=== PATIENT | female | born 2005 | race Caucasian/White ===

== ENCOUNTER 2023-11-09 23:22 | Emergency (ER) | payer BC, SELFPAY ==
[2023-11-09 23:25] VITALS: BP 131/86; PULSE 83; RESP 15; TEMP 36.8; O2SAT 99
[2023-11-09] MEDS: ACETAMINOPHEN 500 MG TABLET 1000 MG PO (23:53)
[2023-11-10 00:09] LABS: Add Urine Microscopic? YES; Appearance Urine Turbid (Clear); Bacteria Urine None Seen /hpf; Bilirubin Urine Negative (Negative); Blood Urine Negative (Negative); Color Urine Yellow (Yellow); Glucose Urine UA Negative (Negative); Ketones Urine Trace mg/dL (Negative); Leukocyte Esterase Ur 1+ LEU/UL (Negative); Mucus Urine Present /lpf; Need Manual Microscopic Reviewed; Nitrate Urine Negative (Negative); Non Pathogenic Casts 0-2; Protein Urine Trace mg/dL (Negative); RBC Urine 51-100 /hpf (0-2); Specific Grav Ur 1.034 (1.001-1.035); Squamous Epithelial Cell Urine Occasional /hpf (Few); WBC Urine 21-50 /hpf (0-3)
--- NOTE | 2023-11-10 03:37 | ED.FEMALEGU ---
HPI - Female Genitourinary General Chief complaint: Urogenital-Female Stated complaint: vaginal pain Time Seen by Provider: 11/10/23 03:34 History of Present Illness HPI Narrative: Patient is a 18-year-old female who presents to the emergency department this evening concerned for these infection. Patient states that she was having some vaginal itching and her mother told her to take some Monistat [id number] vaginal cream. Patient states that shortly after she inserted the vaginal cream she started to have severe burning pain. This is the patient is a first-time using Monistat. Mother states that patient does get frequent urinary tract infection and they were concerned that maybe she also has a UTI. Denies any concern for STDs at this time. No additional symptoms or concerns at this time. Related Data Allergies Allergy/AdvReac Type Severity Reaction Status Date / Time nitrofurantoin Allergy Mild Nausea and Verified 11/09/23 23:24 [From Macrobid] Vomiting Review of Systems Review of Systems: All systems are reviewed and are negative unless stated otherwise in the HPI. PMFSH Family History Family History Father Asthma Hypertension Depression Mother Depression Thyroid disorder Social History Social History Social History: Student Smoking status: Never smoker Second hand tobacco smoke exposure: No Alcohol intake: never Substance use: never Substance use type: does not use Do You Feel Safe in your Home?: Yes Lack of Transportation: No Lack of Food: Never True Current Housing: I Have Housing Concerned About Future Housing: No Difficulty Paying Gas/Electric Bills: No Difficulty Paying for Meds: No Currently Unemployed: No Education: High School Diploma/GED Difficulty w/ Childcare or Family Care: No Living arrangements: with family Additional living arrangements comments: Pt lives with her mom. Occupation/Education: student Additional occupation/education comments: Pt is a student at [employer]. 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 Gender identity (if verbalized by the patient): Female Sexual Orientation (if Verbalized by the Patient): Lesbian, Mera, or Homosexual Exam Narrative: General: Alert, awake, afebrile, in no acute distress. HEENT: PERRL, no rhinorrhea, no post nasal drip, oropharynx clear. Cardiovascular: Regular rate and rhythm, no murmurs, rubs or gallops, no peripheral edema. Respiratory: Clear to auscultation bilaterally, no tachypnea, no wheezing, no rhonchi, no rubs, no respiratory distress. Abdomen: Soft, nontender, nondistended, no rebound, no guarding, no peritoneal signs. Musculoskeletal: No joint swelling or deformity, normal muscle tone. Skin: No rashes or petechia, no signs of infection. Neurological: Alert and oriented to person, place, and time. Follows all commands. No focal deficits, speech is clear and fluent. Course Vital Signs Vital signs: Vital Signs Temperature 98.2 F 11/09/23 23:25 Pulse Rate 83 11/09/23 23:25 Respiratory Rate 15 11/09/23 23:25 Blood Pressure 131/86 11/09/23 23:25 Pulse Oximetry 99 11/09/23 23:25 Oxygen Delivery Room Air 11/09/23 23:25 Temperature 98.2 F 11/09/23 23:25 Pulse Rate 83 11/09/23 23:25 Respiratory Rate 15 11/09/23 23:25 Blood Pressure 131/86 11/09/23 23:25 Pulse Oximetry 99 11/09/23 23:25 Oxygen Delivery Room Air 11/09/23 23:25 MDM - Female Genitourinary MDM Narrative Medical decision making narrative: The patient was evaluated by myself in the emergency department. History is obtained from patient who is an independent historian and physical exam was performed. External medical records were reviewed at this time. Urinalysis was obtained at this time revealing 21-50 white blood cells and 2100 RBCs and 1+ leuk esterases. At
[2023-11-10] MEDS: FLUCONAZOLE 150 MG TABLET PO (04:00)
== END 2023-11-10 04:01 | disposition home or self-care (01) ==
LOC: ANHED 11-10 03:50
PROVIDERS: Emergency Provider Emergency Medicine; PCP Family Medicine
DX: N39.0 Urinary tract infection, site not specified (principal); B37.9 Candidiasis, unspecified
CPT/HCPCS: 81001; 87086; 99283; A9270

== ENCOUNTER 2024-05-21 15:41 | Emergency (ER) | payer BC, SELFPAY ==
[2024-05-21 15:47] VITALS: BP 128/65; PULSE 94; RESP 16; TEMP 36.4; O2SAT 98
--- NOTE | 2024-05-21 15:57 | ED.URI ---
HPI - URI/Sore Throat General Chief Complaint: Upper Respiratory Infection Stated Complaint: FLU Positive, Throat Irritation/Pain Source: patient and RN notes reviewed Mode of arrival: ambulatory Limitations: no limitations History of Present Illness HPI Narrative: 18-year-old female presented for complaint of a sore throat and cough for about 2 weeks. Five days ago she was seen by her PCP, states ?they said I had the flu? and was started on azithromycin. The following day she developed eye swelling and was advised to discontinue azithromycin and start steroid. States today she noticed white patches on the tonsils and endorses a painful swallow. Denies nausea diarrhea, fevers or lethargy. MD elicited complaint: cough Related Data Allergies Allergy/AdvReac Type Severity Reaction Status Date / Time azithromycin Allergy Intermediate Swelling Verified 05/21/24 15:49 of Lip/Tongue/Throat nitrofurantoin (From Allergy Mild Nausea and Verified 05/21/24 15:49 Macrobid) Vomiting Review of Systems Review of Systems: ROS per HPI [facility] Family History Family History Father Asthma Hypertension Depression Mother Depression Thyroid disorder Social History Social History Social History: Student Smoking status: Never smoker Second hand tobacco smoke exposure: No Alcohol intake: never Substance use: never Substance use type: does not use Do You Feel Safe in your Home?: Yes Lack of Transportation: No Lack of Food: Never True Current Housing: I Have Housing Concerned About Future Housing: No Difficulty Paying Gas/Electric Bills: No Difficulty Paying for Meds: No Currently Unemployed: No Education: High School Diploma/GED Difficulty w/ Childcare or Family Care: No Living arrangements: with family Additional living arrangements comments: Pt lives with her mom. Occupation/Education: student Additional occupation/education comments: Pt is a student at [employer]. 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 Gender identity (if verbalized by the patient): Female Sexual Orientation (if Verbalized by the Patient): Lesbian, Mera, or Homosexual Exam Narrative: GENERAL: well-appearing, nontoxic no acute distress. EYES: PERRLA, conjunctivae clear ENT: Mucous membranes moist. TM pearly nguyen with dull light reflex bilaterally; no tragal tenderness. Oropharynx erythematous with significant tonsillar exudate, tonsils enlarged 2+ no drooling, no hoarseness, no trismus, uvula midline. No tripod positioning, muffled voice, soft palate or pharyngeal wall bulging NECK: Supple. Bilateral anterior cervical lymphadenopathy CHEST: Clear to auscultation, breath sounds equal. No wheezing, rhonchi, rales, or stridor. No respiratory distress, speaks in full sentences. HEART: Regular rate and rhythm. SKIN: Warm, dry NEURO: Alert and oriented x3. PSYCH: Normal mood and affect Course Course Emergency Course: Patient is aware of diagnosis, understands and agrees to treatment plan. Anticipatory guidance given. Patient agrees to follow-up as directed and is aware of reasons to seek care at the emergency department. Portions of this record may have been created with voice recognition software Level of Care: Express Care Visit Vital Signs Vital signs: Vital Signs Temperature 97.5 F L 05/21/24 15:47 Pulse Rate 94 05/21/24 15:47 Respiratory Rate 16 05/21/24 15:47 Blood Pressure 128/65 05/21/24 15:47 Pulse Oximetry 98 05/21/24 15:47 Oxygen Delivery Room Air 05/21/24 15:47 Temperature 97.5 F L 05/21/24 15:47 Pulse Rate 94 05/21/24 15:47 Respiratory Rate 16 05/21/24 15:47 Blood Pressure 128/65 05/21/24 15:47 Pulse Oximetry 98 05/21/24 15:47 Oxygen Delivery Room Air 05/21/24 15:47 reviewed MDM - URI/Sore Throat MDM Narrative Medical decision making narrative: Negative flu, COVID, and strep. Will treat for strep based on PE and CC. Discussed physical exam findings. Advised supportive measures and signs/symptoms to go to the ER. Pt is appropriate for outpt treatment and f/u. Differential Diagnosis Differential diagnosis: Likely upper respiratory infection, sinusitis and viral infection Lab Data Labs: Lab Results 05/21/24 Range/Units 16:10 POC Grp A Strep Screen Negative (Negative) Discharge Plan Discharge Clinical Impression: Exudative tonsillitis Patient Disposition: Home, Self-Care Condition: Stable Instructions: Antibiotic Form, Strep Throat (ED) Additional Instructions: Flu COVID and strep negative Ok to continue the steroid and cough medicine as previously prescribed - Take the antibiotic as directed. Fever and sore throat typically resolve within one to three days. Most patients can return to work after 12 to 24 hours of antibiotic therapy, provided you are fever free and otherwise well. -Eat and drink things that are easy to swallow, like soft foods, cool liquids, tea with honey, or popsicles . -Salt water gargles and/or may use topical anesthetic ( Chloraseptic spray) or lozenges to relieve dryness or throat pain -Alternate Tylenol and ibuprofen as needed for pain and fever as directed. -Frequent hand washing or hand burlesque dancer is one of the best ways to prevent spread of infection. Throw away the toothbrush after 24hours of antibiotic. -Follow up with primary care provider -Go to the ER for any worsening symptoms or concerns ( if you have trouble breathing, cannot drink enough fluids, have muffled voice or drooling, difficulty opening your mouth, or severe swelling etc). Patient Language: Trinidadian Prescriptions: New amoxicillin 500 mg tablet 1,000 mg PO DAILY 10 Days Qty: 20 0RF No Action methylprednisolone [Medrol (Bart)] 4 mg tablets,dose pack See Rx Instructions PO PER PKG DIR Qty: 21 0RF Rx Instructions: PO PER PKG DIR for 6 days benzonatate 100 mg capsule 200 mg PO TID PRN (Reason: cough) Qty: 60 0RF Follow-up/Referrals: Connor Donis MD [Primary Care Provider] - Stand Alone Forms: Work/School Release IP Time of Disposition: 16:28
[2024-05-21 16:12] LABS: EDSTREPNEGPOS1 Negative (Negative)
[2024-05-21 16:18] LABS: EDCOVIDSCREEN Negative (Negative); EDINFLUASCREEN Negative (Negative); EDINFLUBSCREEN Negative (Negative)
== END 2024-05-21 16:31 | disposition home or self-care (01) ==
PROVIDERS: Emergency Provider Nurse Practitioner Family; PCP Family Medicine
DX: J03.90 Acute tonsillitis, unspecified (principal); Z20.822 Contact with and (suspected) exposure to COVID-19
CPT/HCPCS: 87081; 87426; 87804; 87880; 99213; G0463